=== PATIENT | female | born 1965 | race Caucasian/White ===

== ENCOUNTER → 2018-08-09 09:02 | Outpatient (POV) | payer MEDICAID, SELFPAY ==
[2018-08-09 09:13] VITALS: BP 113/69; PULSE 96; RESP 18; O2SAT 99
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
== END ==
PROVIDERS: Visit Provider Clinical Nurse Specialist Family Health
DX: M54.41 Lumbago with sciatica, right side (principal)
CPT/HCPCS: 99202

== ENCOUNTER → 2018-08-30 10:14 | Outpatient (POV) | payer MEDICAID, SELFPAY ==
[2018-08-30 10:37] VITALS: BP 100/57; PULSE 98; RESP 18; O2SAT 98; BMI 20.7
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
== END ==
PROVIDERS: Visit Provider Clinical Nurse Specialist Family Health
DX: M54.9 Dorsalgia, unspecified (principal); Z87.39 Personal history of other diseases of the musculoskeletal system and connective tissue
CPT/HCPCS: 99213

== ENCOUNTER → 2018-09-27 11:13 | Outpatient (POV) | payer MEDICAID, SELFPAY ==
[2018-09-27 11:32] VITALS: BP 125/74; PULSE 94; RESP 18; O2SAT 98; BMI 20.7
--- NOTE | 2018-09-27 12:52 | HMH.PAINSOAP ---
[facility] Pain Management SOAP Note Subjective:: Patient is a 53-year-old white female who presents today for follow-up. Patient was scheduled for an epidural injection however when she came her blood glucose was 600. Patient states that she has not taken her insulin for a week. Patient states that she does not feel very well today. I discussed with the patient that her blood sugar could be causing that as well as an increase in her pain. She rates her pain a 8 out of 10 today. ROS General: no recent weight change, no fever, no sleep disturbances Respiratory: no cough, no shortness of air, no recurring pulmonary infections Cardiovascular/Peripheral Vascular: No chest pain, No palpitations, no edema, no shortness of breath. Gastrointestinal: no incontinence, normal bowel movements reported Genitourinary: no incontinence Musculoskeletal: Back pain, leg pain Psychiatric: normal mood/ affect Neurological: [denies weakness in extremities], [denies balance issues] Objective:: Physical Exam General: Alert and oriented x3, no acute distress, pleasant and cooperative, [on room air] Lungs: Resps E/U, Symmetrical chest expansion, Eyes: PERRL Musculoskeletal: Flexion and extension of lumbar spine somewhat guarded secondary to pain, deep tendon reflexes normal, strength in upper and lower extremities [5/5], [abnormal gait noted] Neurological: speech clear, buffer 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 At this time there is nothing we can do for her at this clinic. I did state that she is welcome to call us if she is interested in injections in the future after she has gotten her diabetes under control. Dr. Gold has reviewed this note and agrees with this plan of care. This note was dictated using voice recognition software and may contain errors or omissions
--- NOTE | 2018-10-20 11:09 | PC.PHONENOTE ---
Pt Called today to let the office staff know she has found a pain clinic closer to her home. She requested to be discharged from Dr. Gold clinic.
== END ==
PROVIDERS: Visit Provider Clinical Nurse Specialist Family Health
DX: M51.16 Intervertebral disc disorders with radiculopathy, lumbar region (principal)
CPT/HCPCS: 99213